=== PATIENT | female | born 2000 | race Caucasian/White ===

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

== ENCOUNTER 2022-01-25 19:27 | Emergency (ER) | payer BC ==
[~2022-01-25] VITALS: Ht 160 cm; Wt 65.5 kg
[2022-01-25 19:41] VITALS: TEMP 97.7
[2022-01-25] MEDS ORDERED: MEDROL 4MG DOSPA4 MG PO (21:31)
[2022-01-25] MEDS ORDERED: LIDODERM 5% PATC1 EA TP (21:31)
[2022-01-25 22:30] VITALS: BP 116/78; PULSE 76
== END 2022-01-25 22:30 | disposition home or self-care (01) ==
LOC: COL.ER 19:27
DX: M54.50 Low back pain, unspecified (principal); Z28.310 Unvaccinated for COVID-19
CPT/HCPCS: J1885; J2360